=== PATIENT | female | born 1985 | race African-American/Black ===

== ENCOUNTER 2017-06-01 08:06 | Emergency (ER) | payer OTHER ==
[~2017-06-01] VITALS: Ht 162.6 cm; Wt 74.4 kg
[~2017-06-01 08:06] MED LIST: APAP500 OR; APAP500 PO; AUGMENTIN 875875 MG PO; BACTRIM DS TAB1 EACH PO; BENADRYL ALLERG25 MG; CIPRO500 MG PO; COLACE 100 MG100 MG PO; DERMOPLAST SPRA56 ML; DOXYCYCLINE 10100 MG PO; FLEXERIL PO; HYDROCORTISONE30 G9; IBUPROFEN 600600 M1 PO; IBUPROFEN 800800 M1 OR; IBUPROFEN 800800 M1 PO; IRON325 OR; LANOLIN56 GM; MACROBID 100 M100 M1 PO; NAPROSYN500 M1 PO; NAPROSYN500 MG PO; NOHOMEMEDICATIONS; NORCO 5-325 TA1 EACH PO; PENICILLIN V P500 MG PO; PRENATAL; TUCKS MEDICATE1 EAC1; TUCKS1 EAC1; VALIUM2 MG PO
[2017-06-01 08:44] LABS: URINE BILIRUBIN NEGATIVE (Negative); URINE BLOOD NEGATIVE (Negative); URINE COLOR YELLOW; URINE GLUCOSE-RANDOM* NEGATIVE (Negative); URINE KETONES NEGATIVE (Negative); URINE LEUKOCYTES-REFLEX 1+ (Negative); URINE PROTEIN (DIPSTICK) TRACE (Negative)
[2017-06-01 08:57] LABS: CASTS None Seen /LPF (None Seen); CRYSTALS None Seen /LPF (None Seen); SQUAMOUS >10 Many /LPF (0-3); URINE RBC 0-2 Rare /HPF (0-2); URINE WBC-REFLEX 6-15 Few /HPF (0-5)
[2017-06-01 08:58] LABS: ABSOLUTE NEUTROPHILS 9.8 thou/uL (1.4-8.2); BASOPHILS 0.3 % (0.0-2.0); HEMATOCRIT 33.4 % (37.0-47.0); HEMOGLOBIN 11.3 gm/dL (12.0-15.0); LYMPHOCYTES 17.1 % (24.0-44.0); MCH 28.3 pg (26.0-34.0); MCHC 33.7 g/dL (28.0-37.0); MCV 83.7 fL (80.0-100.0); MONOCYTES 4.8 % (1.0-8.0); PLATELET COUNT 299 thou/uL (150-400); POLYS 76.8 % (36.0-66.0); RBC 3.98 mil/uL (4.20-5.00); RDW 14.2 % (10.5-14.5); WBC 12.8 thou/uL (4.0-11.0)
[2017-06-01 08:58] LABS: AMORPHOUS URATES Few /LPF (None Seen)
[2017-06-01 09:01] LABS: MANUAL DIFF NO
[2017-06-01 09:07] LABS: CALCIUM 8.7 mg/dL (8.5-10.1); CREATININE 0.6 mg/dL (0.6-1.0); POTASSIUM 3.6 mmol/L (3.5-5.1)
[2017-06-01] MEDS ORDERED: APAP500 PO (10:32)
[2017-06-01 10:45] VITALS: BP 118/78
== END 2017-06-01 10:45 | disposition home or self-care (01) ==
LOC: ER 08:06
PROVIDERS: Emergency Medicine
DX: O26.892 Other specified pregnancy related conditions, second trimester (principal); R10.30 Lower abdominal pain, unspecified; F10.99 Alcohol use, unspecified with unspecified alcohol-induced disorder; Z3A.21 21 weeks gestation of pregnancy

== ENCOUNTER 2019-08-08 02:11 | Emergency (ER) | payer OTHER ==
[~2019-08-08] VITALS: Ht 162.6 cm; Wt 77.1 kg
[2019-08-08 02:12] VITALS: BP 105/62
[2019-08-08] MEDS ORDERED: MOBIC15 MG PO (02:42)
[2019-08-08] MEDS ORDERED: BACTRIM DS TAB1 EACH PO (02:42)
[2019-08-08] MEDS ORDERED: KEFLEX500 M1 PO (02:42)
== END 2019-08-08 02:58 | disposition home or self-care (01) ==
LOC: ER 02:11
DX: L03.112 Cellulitis of left axilla (principal); L73.2 Hidradenitis suppurativa; Z88.1 Allergy status to other antibiotic agents

== ENCOUNTER 2021-03-17 12:09 | Emergency (ER) | payer OTHER ==
[~2021-03-17] VITALS: Ht 162.6 cm; Wt 84.4 kg
[~2021-03-17 12:09] MED LIST changes: +KEFLEX500 M1 PO; +MOBIC15 MG PO
[2021-03-17] MEDS ORDERED: PREDNISONE 10 M10 MG PO (12:50)
[2021-03-17] MEDS ORDERED: PEPCID20 MG PO (12:50)
[2021-03-17 13:05] VITALS: BP 129/63
== END 2021-03-17 13:05 | disposition home or self-care (01) ==
LOC: ER 12:09
DX: T78.49XA Other allergy, initial encounter (principal); Z79.2 Long term (current) use of antibiotics; Z79.899 Other long term (current) drug therapy; Z88.1 Allergy status to other antibiotic agents; X58.XXXA Exposure to other specified factors, initial encounter

== ENCOUNTER 2021-11-27 14:05 | Emergency (ER) | payer OTHER ==
[~2021-11-27] VITALS: Ht 162.6 cm; Wt 76.2 kg
[~2021-11-27 14:05] MED LIST changes: +PEPCID20 MG PO; +PREDNISONE 10 M10 MG PO
[2021-11-27 14:13] VITALS: BP 102/61
[2021-11-27 15:13] LABS: URINE BILIRUBIN NEGATIVE (Negative); URINE BLOOD TRACE (Negative); URINE CLARITY CLEAR; URINE COLOR YELLOW; URINE GLUCOSE-RANDOM* NEGATIVE (Negative); URINE KETONES NEGATIVE (Negative); URINE LEUKOCYTES-REFLEX 1+ (Negative); URINE NITRITE-REFLEX NEGATIVE (Negative); URINE PROTEIN (DIPSTICK) TRACE (Negative)
[2021-11-27 15:20] LABS: CASTS None Seen /LPF (None Seen); CRYSTALS None Seen /LPF (None Seen); SQUAMOUS >10 Many /LPF (0-3); URINE RBC 3-10 Few /HPF (NONE SEEN); URINE WBC-REFLEX 6-15 Few /HPF (0-5)
[2021-11-27] MEDS ORDERED: MACROBID 100 M100 M1 PO (15:23)
[2021-11-27] MEDS ORDERED: ZOFRAN ODT4 MG PO (15:23)
[2021-11-27] MEDS ORDERED: TESSALON PERLE100 MG PO (15:23)
== END 2021-11-27 15:24 | disposition home or self-care (01) ==
LOC: ER 14:05
PROVIDERS: Emergency Medicine
DX: U07.1 COVID-19 (principal); N39.0 Urinary tract infection, site not specified; Z88.0 Allergy status to penicillin

== ENCOUNTER 2021-12-21 16:59 | Emergency (ER) | payer OTHER ==
[~2021-12-21] VITALS: Ht 162.6 cm; Wt 88.9 kg
[~2021-12-21 16:59] MED LIST changes: +TESSALON PERLE100 MG PO; +ZOFRAN ODT4 MG PO
[2021-12-21 17:54] VITALS: BP 119/63
[2021-12-21] MEDS ORDERED: DOXYCYCLINE 10100 M2 PO (18:36)
== END 2021-12-21 19:12 | disposition home or self-care (01) ==
LOC: ER 16:59
DX: L02.412 Cutaneous abscess of left axilla (principal); F17.210 Nicotine dependence, cigarettes, uncomplicated; Z88.1 Allergy status to other antibiotic agents